=== PATIENT | female | born 1960 | race Caucasian/White ===

== ENCOUNTER 2018-03-15 07:26 | Emergency (ER) | payer OTHER ==
--- NOTE | 2018-03-15 07:50 | ED Physician Documentation ---
PD HPI NVD - Stated complaint Stated Complaint: ABN PX/DIZZY - Chief complaint Chief Complaint: Abd Pain - History obtained from History obtained from: Patient - History of Present Illness Timing - onset: Today (has few complaints, with feeling "muddle headed" and some nausea. Had run out of BP med and not gotten local PMD as yet. Had returned to drinking regularly, something which she had stopped for almost 6 months and then resumed 1-2 weeks ago. Having some nausea.) Timing - details: Gradual onset, Still present, Waxing and waning Associated symptoms: No: Fever, Abdominal pain Contributing factors: Alcohol use. No: Sick contact, Bad food, Recent antibiotics, Anticoagulated Worsened by: Moving Similar symptoms before: Has not had sx before Recently seen: Not recently seen Review of Systems Constitutional: reports: Myalgias. denies: Fever, Chills Eyes: denies: Discharge, Reviewed and negative Ears: denies: Loss of hearing, Ear pain, Tinnitus/ringing, Foreign body GI: reports: Abdominal Pain, Nausea, Vomiting. denies: Diarrhea, Hematemesis : denies: Dysuria, Frequency Musculoskeletal: denies: Neck pain, Back pain Neurologic: reports: Generalized weakness. denies: Focal weakness, Numbness PD PAST MEDICAL HISTORY - Past Medical History Past Medical History: Yes - Present Medications Home Medications: Ambulatory Orders Medication Instructions Recorded Confirmed Dicyclomine [Bentyl] 10 mg PO QID PRN #20 capsule 03/15/18 Famotidine [Pepcid] 20 mg PO ONCE #30 tablet 03/15/18 Metoprolol Tartrate 25 mg PO DAILY #30 tablet 03/15/18 Naproxen 375 mg PO BID #20 tablet 03/15/18 Nitrofurantoin [Macrobid] 100 mg PO BID #12 capsule 03/15/18 Ondansetron HCl [Zofran] 4 mg PO Q6H PRN #20 tablet 03/15/18 amLODIPine [Norvasc] 5 mg 03/15/18 chlordiazePOXIDE [Librium] 25 mg PO TID PRN #20 capsule 03/15/18 - Allergies Allergies/Adverse Reactions: Allergies Allergy/AdvReac Type Severity Reaction Status Date / Time doxycycline Allergy Mild Rash Verified 03/15/18 07:46 Sulfa (Sulfonamide Allergy Mild Rash Verified 07/15/18 07:46 Antibiotics) lisinopril AdvReac Severe Edema Verified 03/15/18 08:59 PD ED PE NORMAL - Vitals Vital signs reviewed: Yes - General General: Alert and oriented X 3, Well developed/nourished - HEENT HEENT: Atraumatic, PERRL (nonicteric), EOMI, Pharynx benign - Neck Neck: Supple, no meningeal sign, No bony TTP, No adenopathy - Cardiac Cardiac: RRR, No gallop - Respiratory Respiratory: Clear bilaterally - Abdomen Abdomen: Normal bowel sounds, Soft, Non distended, No organomegaly, Other ( concern for vomiting) Results - Vitals Vitals: Vital Signs - 24 hr 03/15/18 03/15/18 03/15/18 07:39 09:15 09:37 Temperature 37.3 C Heart Rate 84 80 82 Respiratory 16 18 18 Rate Blood Pressure 154/104 H 143/83 H O2 Saturation 94 95 03/15/18 03/15/18 11:01 11:40 Temperature 37.3 C 36.5 C Heart Rate 85 92 Respiratory 16 18 Rate Blood Pressure 138/83 H 149/100 H O2 Saturation 94 94 Oxygen O2 Source Room air - Labs Labs: Laboratory Tests 03/15/18 03/15/18 03/15/18 08:20 08:56 08:56 WBC 2.2 L RBC 3.51 L Hgb 12.4 Hct 36.6 L MCV 104.2 H MCH 35.2 H MCHC 33.8 RDW 16.2 H Plt Count 118 L MPV 6.7 L Neut # (Auto) 1.4 L Lymph # (Auto) 0.4 L [place] # (Auto) 0.3 Eos # (Auto) 0.1 Baso # (Auto) 0.0 Absolute Nucleated RBC 0.00 Nucleated RBC % 0.1 ESR Sodium 139 Potassium 4.3 Chloride 100 L Carbon Dioxide 25 Anion Gap 14.0 H BUN 10 Creatinine 0.6 Estimated GFR (MDRD) 102 Glucose 83 Calcium 8.8 Magnesium 2.1 Total Bilirubin 0.7 AST 233 H ALT 134 H Alkaline Phosphatase 95 Total Protein 7.4 Albumin 3.7 Globulin 3.7 Albumin/Globulin Ratio 1.0 Lipase 38 Urine Color YELLOW Urine Clarity CLEAR Urine pH 6.5 Ur Specific [place] 1.010 Urine Protein NEGATIVE Urine Glucose (UA) NEGATIVE Urine Ketones NEGATIVE Urine Occult Blood TRACE-LYSE Urine Nitrite NEGATIVE Urine Bilirubin NEGATIVE Urine Urobilinogen 0.2 (NORMAL) Ur Leukocyte Esterase SMALL H Urine RBC 0-5 Urine WBC >25 H Urine WBC Clumps PRESENT Ur Squamous Epith Cells MANY Squamous H Urine Bacteria Rare Ur Microscopic Review INDICATED Urine Culture Comments NOT INDICATED Ethyl Alcohol 154.2 03/15/18 08:56 WBC RBC Hgb Hct MCV MCH MCHC RDW Plt Count MPV Neut # (Auto) Lymph # (Auto) [place] # (Auto) Eos # (Auto) Baso # (Auto) Absolute Nucleated RBC Nucleated RBC % ESR 21 Sodium Potassium Chloride Carbon Dioxide Anion Gap BUN Creatinine Estimated GFR (MDRD) Glucose Calcium Magnesium Total Bilirubin AST ALT Alkaline Phosphatase Total Protein Albumin Globulin Albumin/Globulin Ratio Lipase Urine Color Urine Clarity Urine pH Ur Specific [place] Urine Protein Urine Glucose (UA) Urine Ketones Urine Occult Blood Urine Nitrite Urine Bilirubin Urine Urobilinogen Ur Leukocyte Esterase Urine RBC Urine WBC Urine WBC Clumps Ur Squamous Epith Cells Urine Bacteria Ur Microscopic Review Urine Culture Comments Ethyl Alcohol PD MEDICAL DECISION MAKING - ED course Complexity details: reviewed results (mildly thickened GB wall at 4 mm. No stones. No free fluid. CBD normal. LFTs some elevated. white count and plateles likely showing some effect of chronic liver disease), re-evaluated patient ( improved with meds/fluids. ), considered differential, d/w patient - Sepsis Event Vital Signs: Vital Signs - 24 hr 03/15/18 03/15/18 03/15/18 07:39 09:15 09:37 Temperature 37.3 C Heart Rate 84 80 82 Respiratory 16 18 18 Rate Blood Pressure 154/104 H 143/83 H O2 Saturation 94 95 03/15/18 03/15/18 11:01 11:40 Temperature 37.3 C 36.5 C Heart Rate 85 92 Respiratory 16 18 Rate Blood Pressure 138/83 H 149/100 H O2 Saturation 94 94 Oxygen O2 Source Room air Departure - Departure Disposition: 01 Home, Self Care Clinical Impression: Upper abdominal pain, Acalculous cholecystitis Alcohol withdrawal Qualifiers: Complication of substance-induced condition: uncomplicated Qualified Code(s): F10.230 - Alcohol dependence with withdrawal, uncomplicated Gastritis Qualifiers: Gastritis type: unspecified gastritis Chronicity: acute Gastritis bleeding: without bleeding Qualified Code(s): K29.00 - Acute gastritis without bleeding UTI (urinary tract infection) Qualifiers: Urinary tract infection type: acute cystitis Hematuria presence: without hematuria Qualified Code(s): N30.00 - Acute cystitis without hematuria Condition: Stable Record reviewed to determine appropriate education?: Yes Instructions: ED Gastritis, ED Epigastric Pain UKO Prescriptions: chlordiazePOXIDE [Librium] 25 mg PO TID PRN #20 capsule PRN Reason: Agitation Dicyclomine [Bentyl] 10 mg PO QID PRN #20 capsule PRN Reason: Spasms Famotidine [Pepcid] 20 mg PO ONCE #30 tablet Metoprolol Tartrate 25 mg PO DAILY #30 tablet Naproxen 375 mg PO BID #20 tablet Nitrofurantoin [Macrobid] 100 mg PO BID #12 capsule Ondansetron HCl [Zofran] 4 mg PO Q6H PRN #20 tablet PRN Reason: Nausea / Vomiting Comments: Your ultrasound shows some mild inflammation of the wall of the gallbladder. There are no stones seen. The location of your pain in that area suggests possibly some gallbladder inflammation. Alternatively he may have just irritation of the stomach lining called gastritis. You can use some naproxen twice daily with food to help with the gallbladder pains. Add dicyclomine if needed for spasms and pain. Add Tylenol if needed for pain. For the stomach we will treated with famotidine daily for the next 2-3 weeks. Add antacids such as much Maalox or Mylanta to it. There is a mild bladder infection by your urine test; Macrobid twice daily for 6 days for that. For your alcohol withdrawal, first to stop drinking again. Use Librium as needed for withdrawal symptoms. Ondansetron as needed for nausea. For your blood pressure, we can add metoprolol as a blood pressure medicine and see how you do with that over the next week or 2. Follow-up with your primary care later this week for recheck, call Friday for an appointment. Discharge Date/Time: 03/15/18 11:48
[2018-03-15] MEDS ORDERED: SODIUM CHLORIDE 0.9% 1,000 ML IV ONE (08:24)
[2018-03-15] MEDS ORDERED: KETOROLAC 60 MG/2 ML VIAL IVP STA (08:24)
[2018-03-15] MEDS ORDERED: LORazepam 2 MG/ML VIAL IVP STA ×2 (08:24→11:19)
[2018-03-15] MEDS ORDERED: ONDANSETRON 4 MG/2 ML VIAL IVP STA (08:24)
[2018-03-15 08:41] LABS: BILIRUBIN,URINE NEGATIVE (NEGATIVE); CLARITY,URINE CLEAR (CLEAR); GLUCOSE, URINE (UA) NEGATIVE (NEGATIVE); KETONES,URINE (UA) NEGATIVE (NEGATIVE); LEUKOCYTE ESTERASE, URINE SMALL (NEGATIVE); NITRITE,URINE NEGATIVE (NEGATIVE); OCCULT BLOOD,URINE TRACE-LYSE (NEGATIVE); PH,URINE 6.5 PH (5.0-7.5); PROTEIN,URINE NEGATIVE (NEGATIVE); UROBILINOGEN,URINE 0.2 (NORMAL) E.U./dL (NORMAL)
[2018-03-15 08:49] LABS: BACTERIA,URINE Rare /HPF (None Seen); RBC,URINE 0-5 /HPF (0-5); SQUAMOUS EPITHELIAL CELL,UR MANY Squamous (<= Few); WBC CLUMPS,URINE PRESENT
[2018-03-15] MEDS ORDERED: ALBUTEROL NEB 2.5 MG/3 ML INH STA (09:02)
[2018-03-15 09:07] LABS: BASOPHILS % (AUTO) 1.2 %; EOSINOPHILS # (AUTO) 0.1 10^3/uL (0.0-0.7); EOSINOPHILS % (AUTO) 3.2 %; HGB - HEMOGLOBIN 12.4 g/dL (12.0-16.0); LYMPHOCYTES # (AUTO) 0.4 10^3/uL (1.5-3.5); LYMPHOCYTES % (AUTO) 16.5 %; MEAN CORPUSCULAR HEMOGLOBIN 35.2 pg (27.0-31.0); MEAN CORPUSCULAR HGB CONC 33.8 g/dL (32.0-36.0); MEAN CORPUSCULAR VOLUME 104.2 fL (81.0-99.0); MEAN PLATELET VOLUME 6.7 fL (7.9-10.8); MONOCYTES # (AUTO) 0.3 10^3/uL (0.0-1.0); NEUTROPHILS # (AUTO) 1.4 10^3/uL (1.5-6.6); NEUTROPHILS % (AUTO) 64.1 %; PLT - PLATELET COUNT 118 10^3/uL (130-450); RED BLOOD COUNT 3.51 10^6/uL (4.20-5.40); RED CELL DISTRIBUTION WIDTH 16.2 % (12.0-15.0); WHITE BLOOD COUNT 2.2 x10^3/uL (4.8-10.8)
[2018-03-15 09:19] LABS: ALBUMIN 3.7 g/dL (3.2-5.5); BILIRUBIN,TOTAL 0.7 mg/dL (0.2-1.0); CALCIUM 8.8 mg/dL (8.5-10.3); CREATININE 0.6 mg/dL (0.4-1.0); MAGNESIUM 2.1 mg/dL (1.7-2.8); TOTAL PROTEIN 7.4 g/dL (6.7-8.2)
--- NOTE | 2018-03-15 11:01 | Ultrasound Report ---
Procedure Date: 03/15/2018 Accession Number: [id number] / [id number] Procedure: US - Abdomen Limited CPT Code: FULL RESULT: EXAM: ABDOMEN ULTRASOUND LIMITED, RUQ EXAM DATE: 03/15/2018 10:33 AM. CLINICAL HISTORY: Right upper quadrant pain COMPARISON: None. TECHNIQUE: Real-time scanning was performed with static images obtained. FINDINGS: Liver: The liver has increased echotexture consistent with fatty infiltration. It is mildly increased in size with an oblique length of 20 cm. Main portal vein flow: Hepatopetal. Gallbladder: The wall thickness is 4.3 mm. The patient reports some tenderness over the gallbladder. No stones. Biliary System: CBD measures 3 mm. No intrahepatic or extrahepatic ductal dilatation. Other: The right kidney is 11.1 cm in length. No stones or hydronephrosis. IMPRESSION: 1. Fatty and mildly enlarged liver. 2. Mildly thickened gallbladder wall with some tenderness raises concern for cholecystitis. RADIA
[2018-03-15] MEDS ORDERED: DICYCLOMINE 10 MG CAPSULE PO STA (11:19)
[2018-03-15] MEDS ORDERED: LIDOCAINE VISCOUS 2% 15 ML UDC MM STA (11:19)
[2018-03-15] MEDS ORDERED: MAG HYDROX/AL HYDROX/SIMETH 30 ML UDC PO STA (11:19)
[2018-03-15 11:40] VITALS: BP 149/100
== END 2018-03-15 11:48 | disposition home or self-care (01) ==
LOC: ED 07:26
DX: R10.10 Upper abdominal pain, unspecified (principal); K82.8 Other specified diseases of gallbladder; F10.230 Alcohol dependence with withdrawal, uncomplicated; K29.00 Acute gastritis without bleeding; N30.00 Acute cystitis without hematuria; T46.5X6A Underdosing of other antihypertensive drugs, initial encounter; Z91.128 Patient's intentional underdosing of medication regimen for other reason; R74.8 Abnormal levels of other serum enzymes; I10 Essential (primary) hypertension
CPT/HCPCS: 36415; 76705; 80053; 80320; 81001; 83690; 83735; 85025; 85651; 94640; 94664; 96361; 96374; 96375; 96376; 99283; A9270; J2060; 81003; 87086

== ENCOUNTER 2018-04-01 12:05 | Emergency (ER) | payer OTHER ==
--- NOTE | 2018-04-01 12:33 | ED Physician Documentation ---
PD HPI LOWER EXT INJURY - Stated complaint Stated Complaint: LEFT LEG PX/SWELLING - Chief complaint Chief Complaint: Ext Problem - History obtained from History obtained from: Patient - History of Present Illness PD HPI LOW EXT INJURY LOCATION: Other (57-year-old woman with history of lupus. She was seen 6 days ago for left lower extremity swelling which got better when it was raised. She had an ultrasound showing a Elizabeth's cyst and no DVT. Now the swelling is worse and also a little bit in the right lower extremity. She notes now that it does not go away when she has it elevated. She denies chest pain or trouble breathing.) Review of Systems Constitutional: denies: Fever, Chills Cardiac: denies: Chest pain / pressure, Palpitations Respiratory: denies: Dyspnea, Cough PD PAST MEDICAL HISTORY - Past Medical History Cardiovascular: Hypertension, High cholesterol Respiratory: Other Endocrine/Autoimmune: None GI: Other : Other Psych: Anxiety - Past Surgical History Past Surgical History: Yes General: Appendectomy HEENT: Tonsil/Adenoidectomy - Present Medications Home Medications: Ambulatory Orders Medication Instructions Recorded Confirmed Dicyclomine [Bentyl] 10 mg PO QID PRN #20 capsule 03/15/18 Famotidine [Pepcid] 20 mg PO ONCE #30 tablet 03/15/18 Metoprolol Tartrate 25 mg PO DAILY #30 tablet 03/15/18 Naproxen 375 mg PO BID #20 tablet 03/15/18 Nitrofurantoin [Macrobid] 100 mg PO BID #12 capsule 03/15/18 Ondansetron HCl [Zofran] 4 mg PO Q6H PRN #20 tablet 03/15/18 amLODIPine [Norvasc] 5 mg 03/15/18 chlordiazePOXIDE [Librium] 25 mg PO TID PRN #20 capsule 03/15/18 - Allergies Allergies/Adverse Reactions: Allergies Allergy/AdvReac Type Severity Reaction Status Date / Time doxycycline Allergy Mild Rash Verified 03/15/18 07:46 Sulfa (Sulfonamide Allergy Mild Rash Verified 03/15/18 07:46 Antibiotics) lisinopril AdvReac Severe Edema Verified 03/15/18 08:59 - Social History Does the pt smoke?: No Smoking Status: Never smoker Does the pt drink ETOH?: Yes PD ED PE NORMAL - Vitals Vital signs reviewed: Yes - General General: Alert and oriented X 3, No acute distress - Extremities Extremities: Other (Modest edema of the left lower extremity with negative Homans sign, no discoloration, normal pedal pulses.) - Neuro Neuro: Alert and oriented X 3 - Psych Psych: Normal mood, Normal affect Results - Vitals Vitals: Vital Signs - 24 hr 04/01/18 04/01/18 12:09 13:41 Temperature 36.4 C L 36.3 C L Heart Rate 77 65 Respiratory 16 18 Rate Blood Pressure 136/100 H 136/87 H O2 Saturation 94 98 Oxygen O2 Source Room air - Rads (name of study) BLE Duplex Radiology: Prelim report reviewed (no DVT, poss L Elizabeth's cyst) PD MEDICAL DECISION MAKING - Sepsis Event Vital Signs: Vital Signs - 24 hr 04/01/18 04/01/18 12:09 13:41 Temperature 36.4 C L 36.3 C L Heart Rate 77 65 Respiratory 16 18 Rate Blood Pressure 136/100 H 136/87 H O2 Saturation 94 98 Oxygen O2 Source Room air Departure - Departure Disposition: 01 Home, Self Care Clinical Impression: Pedal edema Bakers cyst Qualifiers: Laterality: left Qualified Code(s): M71.22 - Synovial cyst of popliteal space [ Elizabeth], left knee Condition: Good Record reviewed to determine appropriate education?: Yes Instructions: ED Cyst Elizabeth Comments: Call your doctor to arrange a follow-up appointment, make the next available appointment. In the interim, return anytime if worse or if new symptoms develop. Your blood pressure was elevated today on check into the emergency department. This does not mean that you have hypertension, it is a common phenomenon to come to the emergency department and have elevated blood pressure. I recommend that you see your primary care physician within the week to have it rechecked when you are feeling better. Discharge Date/Time: 04/01/18 13:50
--- NOTE | 2018-04-01 13:39 | Ultrasound Report ---
Procedure Date: 04/01/2018 Accession Number: [id number] / [id number] Procedure: US - Duplex Ext Veins Bilateral CPT Code: FULL RESULT: EXAM: Duplex Ext Veins Bilateral DATE: 04/01/2018 1:22 PM CLINICAL HISTORY: BLE swelling, known LLE bakers COMPARISON: None. TECHNIQUE: Real-time sonographic vascular imaging was performed by the school bus technician through the lower extremities utilizing both color-flow and Doppler spectral analysis. Multiple applications sales representative static images were saved for review. FINDINGS: Right: Common Femoral Vein (CFV): Normal. [Profunda Femoral Vein (PFV): Normal. Superficial Femoral Vein (SFV) Prox: Normal. Superficial Femoral Vein (SFV) Mid: Normal. Superficial Femoral Vein (SFV) Dist: Normal. Limited calf vein visualization. Left: Common Femoral Vein (CFV): Normal. [Profunda Femoral Vein (PFV): Normal. Superficial Femoral Vein (SFV) Prox: Normal. Superficial Femoral Vein (SFV) Mid: Normal. Superficial Femoral Vein: (SFV) Dist: Normal. Limited calf vein visualization. Other: A left popliteal fossa fluid collection measuring 4.7 x 9.6 x 2.4 cm is identified. This may represent a Elizabeth's cyst, though the diagnosis is not definitively established as the collection was not demonstrated to arise between the medial head of the gastrocnemius and semimembranosus tendon. IMPRESSION: No DVT is identified. Limited visualization of the calf veins. Suspect left popliteal fossa cyst, possibly Elizabeth's cyst as described. RADIA
[2018-04-01 13:42] VITALS: BP 136/87
== END 2018-04-01 13:50 | disposition home or self-care (01) ==
LOC: ED 12:05
DX: R60.0 Localized edema (principal); M71.22 Synovial cyst of popliteal space [Baker], left knee; I10 Essential (primary) hypertension
CPT/HCPCS: 93970; 99283

== ENCOUNTER 2018-09-05 09:12 | Emergency (ER) | payer OTHER ==
[2018-09-05] MEDS ORDERED: SODIUM CHLORIDE 0.9% 1,000 ML IV STA (09:44)
--- NOTE | 2018-09-05 09:49 | ED Physician Documentation ---
History of Present Illness - Stated complaint Stated Complaint: L EYE PX/BLURRY VISION - Chief complaint Chief Complaint: General - History obtained from History obtained from: Patient - History of Present Illness Timing: How many weeks ago (2.5) Pain level max: 4 Pain level now: 4 Improved by: nothing Worsened by: nothing - Additonal information Additional information: 57-year-old female who presents to the emergency department with 2 complaints. The first is continued discomfort to the left eye since her pterygium surgery in [facility] around August 17. No real changes in her vision or discomfort, it is just not getting better. Has not seen her doctor. Called the [facility] advice line who directed her to the nearest emergency department. She is currently on prednisolone and Polytrim ophthalmic for this. She is placing the drops together. She also feels like her kidneys may be shutting down as she is not urinating as much as normal. Has had a partial nephrectomy in the past. She is not having any abdominal pain, back pain, fevers, vomiting, diarrhea. Review of Systems Ten Systems: 10 systems reviewed and negative Constitutional: denies: Fever, Chills Eyes: denies: Photophobia, Discharge Ears: denies: Ear pain Nose: denies: Rhinorrhea / runny nose, Congestion Cardiac: denies: Chest pain / pressure Respiratory: denies: Cough, Wheezing GI: denies: Vomiting, Diarrhea Skin: denies: Rash Musculoskeletal: denies: Neck pain, Back pain Neurologic: denies: Focal weakness, Numbness, Headache PD PAST MEDICAL HISTORY - Past Medical History Past Medical History: Yes Cardiovascular: Hypertension, High cholesterol Respiratory: Other Endocrine/Autoimmune: None GI: Other : Other Psych: Anxiety - Past Surgical History Past Surgical History: Yes General: Appendectomy HEENT: Tonsil/Adenoidectomy - Present Medications Home Medications: Ambulatory Orders Medication Instructions Recorded Confirmed Dicyclomine [Bentyl] 10 mg PO QID PRN #20 capsule 03/15/18 Famotidine [Pepcid] 20 mg PO ONCE #30 tablet 03/15/18 Metoprolol Tartrate 25 mg PO DAILY #30 tablet 03/15/18 Naproxen 375 mg PO BID #20 tablet 03/15/18 Nitrofurantoin [Macrobid] 100 mg PO BID #12 capsule 03/15/18 Ondansetron HCl [Zofran] 4 mg PO Q6H PRN #20 tablet 03/15/18 amLODIPine [Norvasc] 5 mg 03/15/18 chlordiazePOXIDE [Librium] 25 mg PO TID PRN #20 capsule 03/15/18 chlordiazePOXIDE [Librium] 25 - 50 mg PO Q6H PRN #30 capsule 09/05/18 - Allergies Allergies/Adverse Reactions: Allergies Allergy/AdvReac Type Severity Reaction Status Date / Time doxycycline Allergy Mild Rash Verified 09/05/18 09:25 Sulfa (Sulfonamide Allergy Mild Rash Verified 09/05/18 09:25 Antibiotics) lisinopril AdvReac Severe Edema Verified 09/05/18 09:25 - Social History Does the pt smoke?: No Smoking Status: Never smoker Does the pt drink ETOH?: Yes ETOH Use: Wine - POLST Patient has POLST: No PD ED PE NORMAL - Vitals Vital signs reviewed: Yes - General General: Alert and oriented X 3, No acute distress - HEENT HEENT: PERRL, EOMI, Moist mucous membranes, Other (Bilateral eyes - Normal- appearing conjunctiva. No drainage. No injection. No clouding off the cornea.) - Neck Neck: Supple, no meningeal sign - Cardiac Cardiac: RRR - Respiratory Respiratory: No respiratory distress, Clear bilaterally - Abdomen Abdomen: Soft, Non tender, Non distended - Derm Derm: Warm and dry, No rash - Neuro Neuro: Alert and oriented X 3 - Psych Psych: Normal mood, Normal affect Results - Vitals Vitals: Vital Signs - 24 hr 09/05/18 09/05/18 09:20 12:12 Temperature 36.3 C L 36.7 C Heart Rate 94 97 Respiratory 15 16 Rate Blood Pressure 171/101 H 154/91 H O2 Saturation 97 93 Oxygen O2 Source Room air - Labs Labs: Laboratory Tests 09/05/18 09/05/18 09/05/18 10:20 10:20 10:43 WBC 2.2 L RBC 3.35 L Hgb 12.4 Hct 35.8 L MCV 107.1 H MCH 37.0 H MCHC 34.5 RDW 14.7 Plt Count 100 L MPV 6.9 L Neut # (Auto) 1.5 Lymph # (Auto) 0.3 L [place] # (Auto) 0.3 Eos # (Auto) 0.1 Baso # (Auto) 0.0 Absolute Nucleated RBC 0.00 Band Neuts % (Manual) Not Reportable Abnorm Lymph % (Manual) Not Reportable Nucleated RBC % 0.1 Neutrophils # (Manual) Not Reportable Lymphocytes # (Manual) Not Reportable Monocytes # (Manual) Not Reportable Eosinophils # (Manual) Not Reportable Basophils # (Manual) Not Reportable Differential Comment MANUAL=AUTO DIFF Sodium 132 L Potassium 4.2 Chloride 93 L Carbon Dioxide 25 Anion Gap 14.0 H BUN 8 Creatinine 0.7 Estimated GFR (MDRD) 86 L Glucose 82 Calcium 8.7 Total Bilirubin 0.9 AST 217 H ALT 140 H Alkaline Phosphatase 58 Total Protein 7.4 Albumin 4.2 Globulin 3.2 Albumin/Globulin Ratio 1.3 Lipase 32 Urine Color YELLOW Urine Clarity HAZY Urine pH 6.0 Ur Specific [place] <=1.005 Urine Protein NEGATIVE Urine Glucose (UA) NEGATIVE Urine Ketones NEGATIVE Urine Occult Blood NEGATIVE Urine Nitrite NEGATIVE Urine Bilirubin NEGATIVE Urine Urobilinogen 0.2 (NORMAL) Ur Leukocyte Esterase NEGATIVE Urine RBC None Seen Urine WBC 0-3 Ur Epithelial Cells FEW Transitional Ur Squamous Epith Cells MOD Squamous H Urine Bacteria Few Ur Microscopic Review INDICATED Urine Culture Comments NOT INDICATED PD MEDICAL DECISION MAKING - ED course Complexity details: reviewed results, re-evaluated patient, considered differential, d/w patient, d/w production support consultant ED course: 57-year-old female with left eye discomfort and blurred vision since her operation on August 17 in [place]. I discussed the case with ophthalmology on-call for [facility] Dr. Tenorio, her surgery was actually on the and her follow-up visit was the . She has another follow-up this month. We will space out her eyedrops. Her intraocular pressure on the left is 19-20. She did not have preoperative intraocular pressures measured. Her pupils are equal round reactive to light. No signs of infection. Her creatinine is normal. The patient is a alcoholic and drinks at least 2 bottles of wine per day. She is scared about going into withdrawals but would like to quit drinking. Therefore social work was consulted and resources given. Will prescribe Librium for home. Patient was counseled regarding her laboratory abnormalities including thrombocytopenia and leukopenia. Patient counseled regarding signs and symptoms for which I believe and urgent re-evaluation would be necessary. Patient with good understanding of and agreement to plan and is comfortable going home at this time This document was made in part using voice recognition software. While efforts are made to proofread this document, sound alike and grammatical errors may occur. Departure - Departure Disposition: 01 Home, Self Care Clinical Impression: Postoperative pain, Alcoholism Condition: Good Instructions: ED Wound Check Post Op No Infec, ED Alcohol Abuse Follow-Up: your,doctor within 1 week [Other] Prescriptions: chlordiazePOXIDE [Librium] 25 - 50 mg PO Q6H PRN #30 capsule PRN Reason: Alcohol Withdrawal Comments: you should try spacing your eyedrops out at least 10-15 minutes apart. Return if you worsen. You should contact your cartridge assembling machine adjuster early next week for further instructions. You may need to fly back to [place] to be reevaluated. you can also use artificial tears at home every hour to help with discomfort. Discharge Date/Time: 09/05/18 12:31
[2018-09-05 10:26] LABS: BASOPHILS % (AUTO) 1.1 %; EOSINOPHILS # (AUTO) 0.1 10^3/uL (0.0-0.7); EOSINOPHILS % (AUTO) 2.7 %; HGB - HEMOGLOBIN 12.4 g/dL (12.0-16.0); LYMPHOCYTES # (AUTO) 0.3 10^3/uL (1.5-3.5); MEAN CORPUSCULAR HGB CONC 34.5 g/dL (32.0-36.0); MEAN CORPUSCULAR VOLUME 107.1 fL (81.0-99.0); MEAN PLATELET VOLUME 6.9 fL (7.9-10.8); MONOCYTES # (AUTO) 0.3 10^3/uL (0.0-1.0); MONOCYTES % (AUTO) 14.3 %; NEUTROPHILS # (AUTO) 1.5 10^3/uL (1.5-6.6); NEUTROPHILS % (AUTO) 68.9 %; PLT - PLATELET COUNT 100 10^3/uL (130-450); RED BLOOD COUNT 3.35 10^6/uL (4.20-5.40); RED CELL DISTRIBUTION WIDTH 14.7 % (12.0-15.0); WHITE BLOOD COUNT 2.2 x10^3/uL (4.8-10.8)
[2018-09-05 10:37] LABS: ALBUMIN 4.2 g/dL (3.2-5.5); ALBUMIN/GLOBULIN RATIO 1.3 (1.0-2.2); BILIRUBIN,TOTAL 0.9 mg/dL (0.2-1.0); CALCIUM 8.7 mg/dL (8.5-10.3); CREATININE 0.7 mg/dL (0.4-1.0); TOTAL PROTEIN 7.4 g/dL (6.7-8.2)
[2018-09-05 10:49] LABS: DIFFERENTIAL COMMENT MANUAL=AUTO DIFF
[2018-09-05 10:52] LABS: BILIRUBIN,URINE NEGATIVE (NEGATIVE); GLUCOSE, URINE (UA) NEGATIVE (NEGATIVE); KETONES,URINE (UA) NEGATIVE (NEGATIVE); LEUKOCYTE ESTERASE, URINE NEGATIVE (NEGATIVE); NITRITE,URINE NEGATIVE (NEGATIVE); OCCULT BLOOD,URINE NEGATIVE (NEGATIVE); PROTEIN,URINE NEGATIVE (NEGATIVE); UROBILINOGEN,URINE 0.2 (NORMAL) E.U./dL (NORMAL)
[2018-09-05 10:57] LABS: CLARITY,URINE HAZY (CLEAR)
[2018-09-05 11:07] LABS: RBC,URINE None Seen /HPF (0-5); SQUAMOUS EPITHELIAL CELL,UR MOD Squamous (<= Few)
[2018-09-05 11:08] LABS: BACTERIA,URINE Few /HPF (None Seen); EPITHELIAL CELLS,UR FEW Transitional /HPF (<= Few)
[2018-09-05 12:13] VITALS: BP 154/91
== END 2018-09-05 12:31 | disposition home or self-care (01) ==
LOC: ED 09:12
DX: G89.18 Other acute postprocedural pain (principal); H57.12 Ocular pain, left eye; F10.20 Alcohol dependence, uncomplicated; I10 Essential (primary) hypertension; Z90.5 Acquired absence of kidney
CPT/HCPCS: 36415; 80053; 81001; 81003; 83690; 85025; 87086; 99283

== ENCOUNTER 2020-02-29 11:42 | Outpatient (CLI) | payer BC ==
--- NOTE | 2020-02-29 12:46 | XRAY Report ---
PROCEDURE: Knee 3 View BILAT INDICATIONS: Left knee pain TECHNIQUE: 3 views of the bilateral knees COMPARISON: None. FINDINGS: Bones: Moderate osteophytic changes bilaterally characterized by joint space narrowing with marginal osteophytosis and subchondral sclerosis. Findings are worst in the right patellofemoral compartment w here there is essentially complete loss of joint space as well as lateral subluxation and tilt of the patella as a function of the degenerative change. Findings are also pronounced in the medial femorot ibial compartments bilaterally, left greater than right. Soft tissues: No joint effusion. No suspicious soft tissue calcifications. IMPRESSION: overall moderate bilateral tricompartmental osteoarthritis. Reviewed by: Gibran Schmitz MD on 02/29/2020 12:44 PM PDT Approved by: Gibran Schmitz MD on 02/29/2020 12:44 PM PDT Station ID: [id number]
== END 2020-02-29 11:43 | disposition home or self-care (01) ==
LOC: DI 11:42
PROVIDERS: ATTEND Physician Assistant
DX: M17.0 Bilateral primary osteoarthritis of knee (principal)

== ENCOUNTER 2020-03-21 09:05 | Outpatient (CLI) | payer BC ==
--- NOTE | 2020-03-21 09:47 | SLEEP CARE CONSULTATION ---
Information from patient questionnaire entered by Mildred Serrato. I have reviewed and concur with the information entered by Mildred Serrato. This document represents the service I personally performed and the decisions made by me, Carmina Oliveira ARNP. History of Present Illness Service Date and Time: 03/21/2020904 Reason for Visit: New patient Chief Complaint: reports: Unrefreshed sleep, Snoring, Excessive daytime sleepiness, Observed pauses in breathing, Fatigue, Frequent awakenings at night. denies: Insomnia Usual bedtime: 10 pm - 12 am Time it takes to fall asleep: 10-15 mins Snores at night: Yes Observed to quit breathing while asleep: Yes Sleeps alone due to snoring: No Number of times waking at night: 1-2 Reasons for waking at night: reports: Snoring, Gasping for air, Pain, Bathroom. denies: Choking, Other Toss, Turn, or Twitch while sleeping: No Recalls having dreams: Yes Usually gets out of bed at: 6-8 am Feels refreshed in the morning: No Morning headache: No Sleepy or fatigued during the day: Yes Ever fallen asleep while driving: No Takes day naps: No Dreams during day naps: No Prior sleep studies: No Additional HPI information: has seen her gasp for breath, stop breathing and snoring. She has remembered dreaming of choking/can't catch breath and then wakes up. She has had less incidence since she stopped drinking as heavily, approximately 1 year to 14 months ago. - Parasomnia Symptoms Ever been unable to move upon waking from sleep: Yes Walks in sleep: No Talks in sleep: No Ever acted out dreams in sleep: No Ever felt weak in the knees when startled or emotional: No Bothered by creepy, crawly, restless sensations in legs: No Problems with memory or concentration: Yes Subjective Initial [place] Sleepiness Scale score: 8 Past Medical History Past Medical History: reports: Hypertension (not on any medication, mild), Arthritis, Arrythmia (occasional hard palpitation; worked up by PCP/cardiology and found little regurgitation), Anxiety, Asthma, Other (LUPUS). denies: Claustrophobia, Congestive Heart Failure, Diabetes, Coronary Heart Disease, Insulin resistance, Hypothyroidism, Depression, Mood disorder, GERD Social History The patient's occupation is Retired. Patient is and lives in [place]. Have you smoked in the past 12 months: No Cigarettes per day (20/pack): 20 Years of smokin Quit date: 1984 Smoking Pack Years: 10.0 Alcohol use: No Caffeine use: Yes Caffeine amount and frequency: 1/2 pot coffee daily Family History Family history of sleep disordered breathing: Yes (daughter treated CARLOTTA ) Allergies and Home Medications Drug allergies reviewed: Yes (doxycycline, sulfa, lisinopril) Home medication list reviewed: Yes (no changes; zoloft for anxiety) Review of Systems Weight gain over past 5 years: 40 Cardiovascular: reports: high blood pressure, palpitations, irregular heart rate or pulse. denies: chest pain, leg or foot swelling, have to sleep sitting up Respiratory: reports: shortness of breath, wheeze. denies: chronic cough Gastrointestinal: denies: heartburn, difficulty swallowing Urinary: reports: incontinence Neurological: reports: head trauma (concussion). denies: headaches, seizure, disorientation, speech dysfunction, gait or balance problems, fainting or unconsciousness Psychiatric: reports: anxiety. denies: Attention Deficit Hyperactivity, depression, mood disorder, claustrophobia Ear/Nose/Throat: reports: dry mouth/throat, hoarseness, tonsillectomy. denies: wisdom teeth removed (going to be removed) Endocrine: denies: thyroid disease, history of goiter, too hot or cold, excessive thirst, increased appetite, unexplained weakness Musculoskeletal: reports: joint pain (arthritis/Lupus) Immunologic: reports: rash. denies: allergies to food or environment Physical Exam Blood Pressure: 124/90 Cuff size: long Heart Rate: 61 O2 Saturation: 93 Height: 5 ft 6 in Weight: 202 lb (15 pound weight loss over last year with increased activity and quit drinking.) Body Mass Index: 32.5 BMI Classification: Obese Neck circumference: 13.75 Nostrils: patent to airflow Turbinates: swollen Septum: midline Mouth and throat: normal Soft palate: normal Hard palate: normal Uvula: normal Uvula visualization: 50% Mallampati Class II Tongue: normal in size Tonsils: absent bilaterally Chin and jaw: normal size and position Neck: normal w/o lymphadenopathy or thyromegaly Heart: regular rate and rhythm Lungs: clear bilaterally Impression and Plan 1. Suspected Obstructive Sleep Apnea-Hypopnea Syndrome, as suggested by a history of loud and irregular snoring, observed cessation of breath while asleep, gasping or choking in sleep, frequent awakening during the night, unrefreshed sleep, and excessive daytime sleepiness. Narrow oropharynx and obesity are common predisposing factors for obstructive sleep apnea-hypopnea syndrome. 2. Obesity. Patient has lost weight over the last year since she stopped drinking and increased her activity level. Currently patients BMI is 37.9. Obesity increases the risk of apnea, CPAP pressure requirements and overall health risks especially cardiovascular and diabetes. Thus patient is advised to continue to lose weight. The BMI chart was reviewed. I recommend proceeding to polysomnography to confirm the diagnosis and to assess severity. If the patient has significant sleep disordered breathing, a manual CPAP titration study will also be performed to find the optimal treatment pressure. I informed the patient of what the sleep studies involve and after some discussion, obtained agreement to proceed. The pathophysiology of obstructive sleep apnea-hypopnea syndrome was discussed with the patient and health risks of cardiovascular and cerebrovascular disease if not treated. Risks of drowsy driving discussed in detail and patient advised to avoid long distance driving and to slab puller at the first sign of drowsiness. Patient agreed to plan. * Schedule polysomnography +- manual CPAP titration study and return in 1-2 weeks after the study to discuss result and initiate therapy. * Avoid long distance driving or driving when feeling sleepy. * Avoid alcohol, sedative and muscle relaxant around bedtime. * Continue to lose weight. * Review instructions provided by trained office staff on how to prepare for the sleep study. * Return for follow-up after sleep study completed. Visit Type: In Office Time Spent with Patient (minutes): 25 Provider Statement: I spent 100% of the Face to Face Visit with the patient with greater than 50% spent counseling the patient and coordination of care.
[2020-03-21 09:48] VITALS: BP 124/90
== END 2020-03-21 09:06 | disposition home or self-care (01) ==
LOC: SC 09:05
PROVIDERS: ATTEND Nurse Practitioner Family
DX: G47.10 Hypersomnia, unspecified (principal); R06.81 Apnea, not elsewhere classified; G47.8 Other sleep disorders; R06.83 Snoring; E66.9 Obesity, unspecified; Z68.32 Body mass index [BMI] 32.0-32.9, adult
CPT/HCPCS: 99204; 99212

== ENCOUNTER 2020-03-27 08:31 | Outpatient (CLI) | payer BC | END 2020-03-27 08:32 | disposition home or self-care (01) | LOC: LAB 08:31 | PROVIDERS: ATTEND Internal Medicine | DX: Z11.59 Encounter for screening for other viral diseases (principal) ==

== ENCOUNTER 2020-05-05 20:50 | Outpatient (CLI) | payer BC | END 2020-05-05 20:51 | disposition home or self-care (01) | LOC: SC 20:50 | PROVIDERS: ATTEND Internal Medicine Pulmonary Disease | DX: G47.33 Obstructive sleep apnea (adult) (pediatric) (principal); E66.9 Obesity, unspecified; Z68.32 Body mass index [BMI] 32.0-32.9, adult | CPT/HCPCS: 95810 ==

== ENCOUNTER 2020-05-17 12:50 | Outpatient (CLI) | payer BC ==
--- NOTE | 2020-05-17 13:22 | SLEEP CARE CONSULTATION ---
Information from patient questionnaire entered by Mildred Serrato. I have reviewed and concur with the information entered by Mildred Serrato. This document represents the service I personally performed and the decisions made by , Carmina Oliveira ARNP. History of Present Illness Service Date and Time: 05/17/2020 1250 Initial [place] Sleepiness Scale score: 8 (in 2020) Current [place] Sleepiness Scale score: 4 Additional HPI information: DARIANA STINSON returns for follow up and results of the recently performed polysomnography. Her study was positive for moderate obstructive sleep apnea with an average AHI of 22.2 and a bessy oxygen saturation of 83%. Her supine AHI was 30.0 and her non-supine AHI was 10.37. I explained the pathophysiology behind obstructive sleep apnea. We then spent quite a bit of time discussing different treatment options. For mild obstructive sleep apnea, surgery and oral appliance are alternatives to nasal CPAP therapy but in moderate or severe cases, nasal CPAP is the most effective and reliable treatment. Because apnea is worse in the supine position methods discussed such as positioning with pillows to prevent supine sleep. I reviewed the impact of weight changes on sleep apnea and strongly recommended losing weight. After some discussion, the patient opted to go with the nasal CPAP therapy. Nasal autoCPAP set at 4-15 cmH20 will be ordered with rationale explained. A manual titration study will be ordered if unable to find optimal pressure with office adjustments. I explained how CPAP machine works with sample devices Respironics Dreamstation and ResBlink (air taxi) [id number] and what to expect when using the machine. Using CPAP every night in order to get used to it was emphasized. Patient advised to put CPAP mask on before getting into bed so as not to fall asleep without CPAP. To assist acclimation to CPAP use, it could also be used for a short time during day while reading or watching TV. The patient was instructed to call the CPAP supplier to discuss any mechanical problem that may occur. If the mask given is uncomfortable or is difficult to keep on through the night even with adjustment, contact the CPAP supplier as many will replace with another mask style if not ified before 30 days. If snoring or perceives is not getting enough air or too much air from the machine, notify this office. [facility] patient education PAP tips reviewed and given to patient. Patient does not drink alcohol. Patient was cautioned about risks of drowsy driving until sleepiness symptoms resolve. Patient denies drowsy driving. Sleep Study - Results Prior sleep studies: No Polysomnography/Home Sleep Study results: IMPRESSION: The quality of the study is good. The patient had normal sleep efficiency. The sleep architecture was abnormal for sleep fragmentation and reduced amount of time spent in REM sleep. Respiratory monitoring showed moderate obstructive sleep apnea-hypopnea (AHI = 22.2) associated with frequent arousals, oxyhemoglobin desaturation and mild hypoxia (bessy oxygen saturation of 83%). The respiratory events occurred mainly during supine sleep (supine AHI = 30.0; non-supine = 10.37). Snore was moderate in intensity. There was no significant periodic leg movement of sleep. Cardiac rhythm was normal sinus rhythm without significant arrhythmia. No abnormal behavior (parasomnia) observed during the night. Allergies and Home Medications Drug allergies reviewed: Yes (sulfa, doxycycline, lisinopril) Home medication list reviewed: Yes (no changes) Review of Systems Review of systems same as previous: Yes (no changes) Physical Exam Heart Rate: 63 O2 Saturation: 97 Height: 5 ft 6 in Weight: 192 lb Body Mass Index: 30.9 BMI Classification: Obese Impression and Plan 1. Obstructive Sleep Apnea-Hypopnea Syndrome, moderate, with lowest oxygen saturation of 83%. Obviously this is the cause of the patients symptoms of unrefreshed sleep, and excessive daytime sleepiness. Positive pressure therapy could benefit her hypertension and Lupus. Patient is very familiar with CPAP since her and daughter both use them. As mentioned above, the patient will be started on nasal autoCPAP therapy with pressure set at 4-15 cmH2O. A manual titration study will be completed if unable to find optimal treatment pressure with office adjustments. Compliance guidelines also reviewed. A copy of compliance guidelines will be given for reference at check out. Because the apnea is more severe supine, I instructed to avoid sleeping supine using pillow positioning until able to start CPAP use. * Nasal auto CPAP therapy, pressure at 4-15 cm H2O. * Attempt to lose weight. * Avoid alcohol consumption near bedtime. * Avoid supine sleep until using CPAP. * The patient is again cautioned about driving until sleepiness completely resolves. * Return one month after CPAP obtained. I will assess response to therapy and compliance at that time. Visit Type: In Office Time Spent with Patient (minutes): 23 Provider Statement: I spent 100% of the Face to Face Visit with the patient with greater than 50% spent counseling the patient and coordination of care.
== END 2020-05-17 12:51 | disposition home or self-care (01) ==
LOC: SC 12:50
PROVIDERS: ATTEND Nurse Practitioner Family
DX: G47.33 Obstructive sleep apnea (adult) (pediatric) (principal); E66.9 Obesity, unspecified; Z68.30 Body mass index [BMI] 30.0-30.9, adult
CPT/HCPCS: 99212; 99213

== ENCOUNTER 2020-08-08 10:14 | Outpatient (CLI) | payer BC ==
[2020-08-08 11:01] LABS: CALCIUM 9.3 mg/dL (8.5-10.3)
== END 2020-08-08 10:15 | disposition home or self-care (01) ==
LOC: LAB 10:14
PROVIDERS: ATTEND Nurse Practitioner Family
DX: Z01.812 Encounter for preprocedural laboratory examination (principal)
CPT/HCPCS: 36415; 80048

== ENCOUNTER 2020-09-06 09:46 | Outpatient (CLI) | payer BC ==
--- NOTE | 2020-09-06 10:58 | SLEEP CARE CONSULTATION ---
Information from patient questionnaire entered by Mildred Serrato. I have reviewed and concur with the information entered by Mildred Serrato. This document represents the service I personally performed and the decisions made by , Carmina Oliveira ARNP. History of Present Illness Service Date and Time: 09/06/2020 0946 Previous diagnosis: Moderate, Obstructive Sleep Apnea-Hypopnea Syndrome AHI: 22.2 (in 2019) Reason for follow up: first compliance Equipment type: CPAP Equipment obtained from: [employer] (getting supplies as needed) Mask style: Nasal (over the nose) Backup mask available: Yes (other mask) Last cushion change: 1 month Prior sleep studies: Yes Year and Where: 2019 - [facility] Type of Sleep Study: Polysomnography HPI additional information: DARIANA STINSON was diagnosed to have moderate, AHI 22.2, obstructive sleep apnea- hypopnea syndrome and returned today with spouse for CPAP therapy first compliance follow-up. CPAP Compliance Data - Data Reviewed with Patient Average duration of nightly device use: 6 hr 32 min Compliance rate %: 90 Current pressure setting (cmH2O): 5-15 (average 11.5 and max 13.4 cmH2O) Humidity settin Heated hose settin Average residual AHI: 7.1 Central apnea: 1.7 Obstructive apnea: 3.3 Average large leak: 4 min 50 sec Subjective Missed days of use due to: reports: other (ill fitting mask, had to wait 2 weeks for mask refitting) Patient concerns: reports: mask discomfort (still getting used to it), air blowing in eyes, mask leak noise, dry mouth, nose, throat. denies: aerophagia, condensation in mask/hose, nasal congestion, epistaxis Observed to snore while using device: No Current pressure setting perceived as: too high On therapy, patient: reports: sleeping better, awakening more refreshed, being more awake and alert during the day, more rested overall, other (She still is getting used to it and has had some mask issues that have since improved). denies: drowsiness while driving Initial [place] Sleepiness Scale score: 8 (in 2019) Current [place] Sleepiness Scale score: 5 Allergies and Home Medications Drug allergies reviewed: Yes (no changes) Home medication list reviewed: Yes (no changes) Review of Systems Review of systems same as previous: Yes (no changes) Physical Exam Heart Rate: 63 O2 Saturation: 98 Height: 5 ft 6 in Weight: 199 lb Body Mass Index: 32.1 BMI Classification: Obese Impression and Plan 1. Obstructive Sleep Apnea-Hypopnea Syndrome, moderate, with good treatment compliance and fair apnea control with mildly elevated residual AHI. On CPAP therapy, the patient has better sleep quality and is more rested overall. The patients pressure will be changed to autoCPAP 11-14 cmH20 for elevation of residual AHI. Patient advised to contact me if pressure change is uncomfortable so that it can be adjusted. Goals for apnea control discussed. She has had some mask issues but is now comfortable with current nasal mask. She has been getting more mask leaking noises and air in her eyes, especially when rolling onto her side. Mask leaks can be reduced by washing mask daily and changing mask cushions more frequently to improve mask seal and comfort. Additionally, mask leaks predominately from when patient sleeps on their side can be reduced by using a CPAP pillow. A CPAP pillow sample was shown. This and other styes can be purchased online. Patient's apnea severity and rationale for treatment to reduce apnea, improve sleep quality and reduce cardiovascular and cerebrovascular events was reviewed. I also reviewed the benefit of consistent device use of CPAP for hypertension and Lupus. * Change auto CPAP pressure to 11-14 cmH2O * Notify me if snoring with mask or feeling that the pressure is too much or too little * Attempt to lose weight * Call this office if any problems using CPAP * Return for follow up in 1-2 months, or sooner if concerns arise Counseling Topics: Spare mask, Weight loss health impact Visit Type: In Office Time Spent with Patient (minutes): 17 Provider Statement: I spent 100% of the Face to Face Visit with the patient with greater than 50% spent counseling the patient and coordination of care.
== END 2020-09-06 09:47 | disposition home or self-care (01) ==
LOC: SC 09:46
PROVIDERS: ATTEND Nurse Practitioner Family
DX: G47.33 Obstructive sleep apnea (adult) (pediatric) (principal); E66.9 Obesity, unspecified; Z68.32 Body mass index [BMI] 32.0-32.9, adult
CPT/HCPCS: 99212; 99213

== ENCOUNTER 2020-11-08 10:05 | Outpatient (CLI) | payer BC ==
--- NOTE | 2020-11-08 10:37 | SLEEP CARE CONSULTATION ---
Information from patient questionnaire entered by Mildred Serrato. I have reviewed and concur with the information entered by Mildred Serrato. This document represents the service I personally performed and the decisions made by , Carmina Oliveira ARNP. History of Present Illness Service Date and Time: 11/08/2020 1005 Previous diagnosis: Moderate, Obstructive Sleep Apnea-Hypopnea Syndrome AHI: 22.2 (in 2019) Reason for follow up: other (2 month with pressure change) Equipment type: CPAP Equipment obtained from: [employer] (getting supplies as needed) Mask style: Nasal (over the nose) Backup mask available: Yes (old mask) Last cushion change: 2-2.5 weeks Prior sleep studies: Yes Year and Where: 2019 - [facility] Type of Sleep Study: Polysomnography HPI additional information: DARIANA STINSON was diagnosed to have moderate, AHI 22.2, obstructive sleep apnea- hypopnea syndrome and returned today for CPAP therapy 2 month pressure change follow-up. CPAP Compliance Data - Data Reviewed with Patient Average duration of nightly device use: 6 hr 7 min Compliance rate %: 76.7 (60 days) Current pressure setting (cmH2O): 4-11 (median 8.1, avg 10.2, max 12.3) Humidity settin Heated hose settin Average residual AHI: 6.8 Average large leak: 2 min 17 sec Subjective Patient concerns: denies: aerophagia, mask discomfort, air blowing in eyes, mask leak noise, condensation in mask/hose, nasal congestion, dry mouth, nose, throat, epistaxis, other Observed to snore while using device: No Current pressure setting perceived as: comfortable On therapy, patient: reports: sleeping better, awakening more refreshed, being more awake and alert during the day, more rested overall. denies: drowsiness while driving Initial [place] Sleepiness Scale score: 8 (in 2020) Current [place] Sleepiness Scale score: 7 Allergies and Home Medications Home medication list reviewed: Yes (no new medications) Review of Systems Review of systems same as previous: No (L knee replacement) Physical Exam Heart Rate: 89 O2 Saturation: 99 Height: 5 ft 6 in Weight: 198 lb Body Mass Index: 31.9 BMI Classification: Obese Impression and Plan 1. Obstructive Sleep Apnea-Hypopnea Syndrome, moderate, with fair treatment compliance and fair apnea control with mild elevation of residual AHI. On CPAP therapy, the patient has better sleep quality and is more rested overall. She states after the pressure was changed last time it was just "blasting" and she could not tolerate it. She had "Ok" look at it and adjusted it to 4-11 cmH2O which has been more tolerable. Unfortunately, her residual AHI is still elevated. I will change the patients pressure to autoCPAP 8-12 cmH20 for elevation of residual AHI. Patient advised to contact me if pressure change is uncomfortable so that it can be adjusted. Goals for apnea control discussed. She states no issues with mask or machine otherwise. Patient's apnea severity and rationale for treatment to reduce apnea, improve sleep quality and reduce cardiovascular and cerebrovascular events was reviewed. I also reviewed the benefit of consistent device use of CPAP for hypertension and Lupus. * Change auto CPAP pressure to 8-12 cmH2O * Notify me if snoring with mask or feeling that the pressure is too much or too little * Attempt to lose weight * Call this office if any problems using CPAP * Return for follow up in 1-2 months, or sooner if concerns arise Counseling Topics: Spare mask, Weight loss health impact Visit Type: In Office Time Spent with Patient (minutes): 20 Provider Statement: I spent 100% of the Face to Face Visit with the patient with greater than 50% spent counseling the patient and coordination of care.
== END 2020-11-08 10:06 | disposition home or self-care (01) ==
LOC: SC 10:05
PROVIDERS: ATTEND Nurse Practitioner Family
DX: G47.33 Obstructive sleep apnea (adult) (pediatric) (principal); E66.9 Obesity, unspecified; Z68.31 Body mass index [BMI] 31.0-31.9, adult
CPT/HCPCS: 99212; 99213

== ENCOUNTER 2020-12-26 12:47 | Day surgery (SDC) | payer BC ==
[2020-12-26] MEDS ORDERED: LACTATED RINGERS 1,000 ML IV ONE ×2 (13:09→17:53)
[2020-12-26] MEDS ORDERED: NALOXONE 0.4 MG/ML VIAL IVP PRN (14:30)
[2020-12-26] MEDS ORDERED: METOCLOPRAMIDE 10 MG/2 ML VIAL IVP PRN (14:30)
[2020-12-26] MEDS ORDERED: HYDROmorphone 0.5 MG/0.5 ML SYRINGE IVP PRN (14:30)
[2020-12-26] MEDS ORDERED: ePHEDrine 50 MG/ML VIAL IVP PRN (14:30)
[2020-12-26] MEDS ORDERED: ATROPINE ABBOJECT 1 MG/10 ML SYRINGE IVP PRN (14:30)
[2020-12-26] MEDS ORDERED: MORPHINE 2 MG/ML CARPUJECT IVP PRN (14:30)
[2020-12-26] MEDS ORDERED: fentaNYL 100 MCG/2 ML VIAL IVP PRN (14:30)
[2020-12-26] MEDS ORDERED: ONDANSETRON 4 MG/2 ML VIAL IVP PRN (14:30)
--- NOTE | 2020-12-26 14:30 | ANESTHESIA ---
Pre-Anesthesia VS, & Labs - Diagnosis screening - Procedure colonoscopy Vital Signs: Temp Pulse Resp BP Pulse Ox 36.8 C 75 16 132/93 H 100 12/26/20 13:16 12/26/20 13:16 12/26/20 13:16 12/26/20 13:16 12/26/20 13:16 Height: 5 ft 6 in Weight (kg): 87.5 kg Body Mass Index: 31.1 BMI Classification: Obese - NPO >8 hours - Is Patient ?: No - Lab Results Lab results reviewed: Yes Home Medications and Allergies Home Medications: Ambulatory Orders Naproxen Sod/Diphenhydram HCl [Aleve Pm Caplet] 1 each PO DAILY PM 12/26/20 Sertraline HCl [Zoloft] 100 mg PO DAILY 12/26/20 Naproxen Sod/Diphenhydram HCl [Aleve Pm Caplet] 1 each PO DAILY PM 12/26/20 Sertraline HCl [Zoloft] 100 mg PO DAILY 12/26/20 Allergies/Adverse Reactions: Allergies Allergy/AdvReac Type Severity Reaction Status Date / Time doxycycline Allergy Mild Rash Verified 12/26/20 13:25 Sulfa (Sulfonamide Allergy Mild Rash Verified 12/26/20 13:25 Antibiotics) lisinopril AdvReac Severe Edema Verified 12/26/20 13:25 Anes History & Medical History - Anesthetic History Anesthesia Complications: reports: No previous complications Family history of Anesthesia Complications: Denies Family history of Malignant Hyperthermia: Denies - Medical History Cardiovascular: reports: Hypertension, High cholesterol Pulmonary: reports: Sleep apnea, CPAP use, Other Gastrointestinal: reports: Other Urinary: reports: Other Musculoskeletal: reports: Osteoarthritis Endocrine/Autoimmune: reports: Systemic lupus erythematosus Smoking Status: Never smoker - Surgical History General: reports: Appendectomy Eyes Ears Nose Throat (EENT): reports: Tonsil/Adenoidectomy Exam General: Alert, Oriented x3, Cooperative, No acute distress Dental: WNL Mouth Openin Fingerbreadth Neck Mobility: Normal Mallampati classification: I Respiratory: Lungs clear, Normal breath sounds, No respiratory distress, No accessory muscle use Cardiovascular: Regular rate, Normal S1, Normal S2, No murmurs Plan Anesthesia Type: General, Total IV Consent for Procedure(s) Verified and Reviewed: Yes Code Status: Attempt Resuscitation ASA classification: 2-Mild systemic disease Is this case an emergency?: No
[2020-12-26] MEDS ORDERED: LACTATED RINGERS 1,000 ML IV SCH (15:00)
[2020-12-26] MEDS ORDERED: PROPOFOL 1000 MG/100 ML 1,000 MG/100 ML BOTTLE IV ONE (17:12)
--- NOTE | 2020-12-26 17:59 | ANESTHESIA POST OP EVALUATION ---
Anesthesia Post Eval - Post Anesthesia Eval Vitals: Last Vital Signs Temp 36.9 C 12/26/20 17:54 Pulse 99 12/26/20 17:54 Resp 18 12/26/20 17:54 BP 93/63 12/26/20 17:54 Pulse Ox 100 12/26/20 17:54 CV Function Including HR & BP: Stable Pain Control: Satisfactory Nausea & Vomiting: Negative Mental Status: Baseline Respiratory Status: Airway Patent Hydration Status: Satisfactory Anesthesia Complications: None
[2020-12-26 18:12] VITALS: BP 114/72
== END 2020-12-26 12:48 | disposition home or self-care (01) ==
LOC: SDS 12:47
PROVIDERS: ATTEND Surgery
PROC: 0DBN8ZZ Excision of Sigmoid Colon, Via Natural or Artificial Opening Endoscopic (ICD-10-PCS; principal; 2020-12-26 14:00)
DX: Z12.11 Encounter for screening for malignant neoplasm of colon (principal); D12.5 Benign neoplasm of sigmoid colon; K64.8 Other hemorrhoids; G47.30 Sleep apnea, unspecified; J45.909 Unspecified asthma, uncomplicated; M32.9 Systemic lupus erythematosus, unspecified; E66.9 Obesity, unspecified; Z68.31 Body mass index [BMI] 31.0-31.9, adult; F10.11 Alcohol abuse, in remission; M19.90 Unspecified osteoarthritis, unspecified site; F41.9 Anxiety disorder, unspecified; Z79.51 Long term (current) use of inhaled steroids; Z79.1 Long term (current) use of non-steroidal anti-inflammatories (NSAID); Z79.899 Other long term (current) drug therapy; Z87.440 Personal history of urinary (tract) infections; Z90.5 Acquired absence of kidney; Z80.0 Family history of malignant neoplasm of digestive organs; Z83.79 Family history of other diseases of the digestive system; Z87.891 Personal history of nicotine dependence
CPT/HCPCS: 45385; J7120

== ENCOUNTER 2021-01-12 14:47 | Outpatient (CLI) | payer BC ==
--- NOTE | 2021-01-12 15:12 | SLEEP CARE CONSULTATION ---
Information from patient questionnaire entered by Mildred Serrato. I have reviewed and concur with the information entered by Mildred Serrato. This document represents the service I personally performed and the decisions made by , Carmina Oliveira ARNP. History of Present Illness Service Date and Time: 01/12/2021 1447 Previous diagnosis: Moderate, Obstructive Sleep Apnea-Hypopnea Syndrome AHI: 22.2 (in 2019) Reason for follow up: other (2 month with pressure change) Equipment type: CPAP Equipment obtained from: [employer] (getting supplies as needed) Mask style: Nasal (over the nose) Backup mask available: Yes (other mask) Last cushion change: 2-4 weeks Prior sleep studies: Yes Year and Where: 2019 [facility] Type of Sleep Study: Polysomnography HPI additional information: DARIANA STINSON was diagnosed to have moderate, AHI 22.2, obstructive sleep apnea- hypopnea syndrome and returned today for CPAP therapy 2 month pressure change follow-up. CPAP Compliance Data - Data Reviewed with Patient Average duration of nightly device use: 5 hr 40 min Compliance rate %: 71.7 (60 days) Current pressure setting (cmH2O): 8-12 (mean 9.2, avg 10.9 and max 12.0) Humidity settin Heated hose settin Average residual AHI: 6.0 Average large leak: 4 min 7 sec Subjective Missed days of use due to: reports: other (taking off at night) Patient concerns: reports: nasal congestion (from allergies). denies: aerophagia, mask discomfort, air blowing in eyes, mask leak noise, condensation in mask/hose, dry mouth, nose, throat, epistaxis, other Observed to snore while using device: No Current pressure setting perceived as: too high (at first, now comfortable) On therapy, patient: reports: sleeping better, awakening more refreshed, being more awake and alert during the day, more rested overall. denies: drowsiness while driving Initial [place] Sleepiness Scale score: 8 (in 2019) Current [place] Sleepiness Scale score: 4 Allergies and Home Medications Home medication list reviewed: Yes (no changes) Review of Systems Review of systems same as previous: Yes (no changes) Physical Exam Heart Rate: 60 O2 Saturation: 97 Height: 5 ft 6 in Weight: 197 lb Body Mass Index: 31.8 BMI Classification: Obese Impression and Plan 1. Obstructive Sleep Apnea-Hypopnea Syndrome, moderate, with fair treatment compliance and fair apnea control with minimal elevation of residual AHI. On CPAP therapy, the patient has better sleep quality and is more rested overall. She has felt the pressure is too much at the start of night, but she ramps the pressure down to 4 cmH2O and is able to go back to sleep before it gets too high. She does have a minimal elevation of her residual apnea and we discussed increasing her pressure to 10-12 cmH2O. She may still use the ramp feature to reduce pressure while going to sleep. She agreed to try the pressure change and will call if this is uncomfortable so I can adjust pressure back. Patient's apnea severity and rationale for treatment to reduce apnea, improve sleep quality and reduce cardiovascular and cerebrovascular events was reviewed. I also reviewed the benefit of consistent device use of CPAP for hypertension and lupus. * Change auto CPAP pressure to 10-12 cmH2O * Notify me if snoring with mask or feeling that the pressure is too much or too little * Attempt to lose weight * Call this office if any problems using CPAP * Return for follow up in 1-2 months, or sooner if concerns arise Counseling Topics: Spare mask, Weight loss health impact Visit Type: In Office Time Spent with Patient (minutes): 16 Provider Statement: I spent 100% of the Face to Face Visit with the patient with greater than 50% spent counseling the patient and coordination of care.
== END 2021-01-12 14:48 | disposition home or self-care (01) ==
LOC: SC 14:47
PROVIDERS: ATTEND Nurse Practitioner Family
DX: G47.33 Obstructive sleep apnea (adult) (pediatric) (principal); E66.9 Obesity, unspecified; Z68.31 Body mass index [BMI] 31.0-31.9, adult
CPT/HCPCS: 99212

== ENCOUNTER 2021-03-13 10:27 | Outpatient (CLI) | payer BC ==
[2021-03-13 11:13] LABS: BASOPHILS % (AUTO) 0.8 %; EOSINOPHILS # (AUTO) 0.1 10^3/uL (0.0-0.7); HCT - HEMATOCRIT 36.5 % (37.0-47.0); HGB - HEMOGLOBIN 11.9 g/dL (12.0-16.0); LYMPHOCYTES # (AUTO) 0.5 10^3/uL (1.5-3.5); LYMPHOCYTES % (AUTO) 9.6 %; MEAN CORPUSCULAR HEMOGLOBIN 31.2 pg (27.0-31.0); MEAN CORPUSCULAR HGB CONC 32.6 g/dL (32.0-36.0); MEAN CORPUSCULAR VOLUME 95.8 fL (81.0-99.0); MEAN PLATELET VOLUME 9.8 fL (7.9-10.8); MONOCYTES # (AUTO) 0.2 10^3/uL (0.0-1.0); MONOCYTES % (AUTO) 4.6 %; NEUTROPHILS # (AUTO) 4.4 10^3/uL (1.5-6.6); NEUTROPHILS % (AUTO) 83.6 %; PLT - PLATELET COUNT 177 10^3/uL (130-450); RED BLOOD COUNT 3.81 10^6/uL (4.20-5.40); RED CELL DISTRIBUTION WIDTH 14.3 % (12.0-15.0); WHITE BLOOD COUNT 5.2 x10^3/uL (4.8-10.8)
[2021-03-13 11:33] LABS: ALBUMIN 4.4 g/dL (3.2-5.5); ALBUMIN/GLOBULIN RATIO 1.7 (1.0-2.2); ALKALINE PHOSPHATASE 46 IU/L (42-121); ALT ALANINE AMINOTRANSFERASE 11 IU/L (10-60); AST ASPARTATE AMINOTRANSFERASE 15 IU/L (10-42); BILIRUBIN,TOTAL 0.8 mg/dL (0.2-1.0); BUN - BLOOD UREA NITROGEN 23 mg/dL (6-20); CALCIUM 9.4 mg/dL (8.5-10.3); CARBON DIOXIDE - CO2 27 mmol/L (21-32); CHLORIDE 101 mmol/L (101-111); CHOL/HDL RATIO 3.7 (<4.4); CHOLESTEROL 231 mg/dL; CREATININE 0.9 mg/dL (0.4-1.0); GFR - MDRD 63 (>89); GLUCOSE 98 mg/dL (70-100); HDL CHOLESTEROL 63 mg/dL; LDL CHOLESTEROL,CALCULATED 156 mg/dL; LDL/HDL RATIO 2.5 (<4.4); POTASSIUM 4.4 mmol/L (3.5-5.0); SODIUM 136 mmol/L (135-145); TRIGLYCERIDES 61 mg/dL; VLDL CHOLESTEROL 12 mg/dL
[2021-03-16 11:26] LABS: COMPLEMENT COMPONENT C3C 108 mg/dL (83-193)
[2021-03-16 14:01] LABS: DNA (DS) ANTIBODY 6 IU/mL
== END 2021-03-13 10:28 | disposition home or self-care (01) ==
LOC: LAB 10:27
PROVIDERS: ATTEND Internal Medicine
DX: I10 Essential (primary) hypertension (principal); L93.0 Discoid lupus erythematosus
CPT/HCPCS: 36415; 80053; 80061; 83721; 85025; 85651; 86160; 86225

== ENCOUNTER 2021-03-14 10:46 | Outpatient (CLI) | payer BC ==
--- NOTE | 2021-03-14 11:13 | SLEEP CARE CONSULTATION ---
Information from patient questionnaire entered by Mildred Serrato. I have reviewed and concur with the information entered by Mildred Serrato. This document represents the service I personally performed and the decisions made by , Carmina Oliveira ARNP. History of Present Illness Service Date and Time: 03/14/2021 1046 Previous diagnosis: Moderate, Obstructive Sleep Apnea-Hypopnea Syndrome AHI: 22.2 (in 2019) Reason for follow up: other (2 month with pressure change) Equipment type: CPAP Equipment obtained from: [employer] (getting supplies as needed) Mask style: Nasal (over the nose) Backup mask available: Yes (old mask) Last cushion change: 6 weeks Prior sleep studies: Yes Year and Where: 2019 - [facility] Type of Sleep Study: Polysomnography HPI additional information: DARIANA STINSON was diagnosed to have moderate, AHI 22.2, obstructive sleep apnea- hypopnea syndrome and returned today for CPAP therapy 2 month pressure change follow-up. CPAP Compliance Data - Data Reviewed with Patient Average duration of nightly device use: 5 hr 55 sec Compliance rate %: 70 (60 days) Current pressure setting (cmH2O): 10-12 Humidity settin Heated hose settin Average residual AHI: 4.1 Central apnea: 1.3 Obstructive apnea: 2.1 Average large leak: 49 sec Subjective Patient concerns: denies: aerophagia, mask discomfort, air blowing in eyes, mask leak noise, condensation in mask/hose, nasal congestion, dry mouth, nose, throat, epistaxis, other Observed to snore while using device: No Current pressure setting perceived as: comfortable On therapy, patient: reports: sleeping better, awakening more refreshed, being more awake and alert during the day, more rested overall. denies: drowsiness while driving Initial [place] Sleepiness Scale score: 8 (in 2019) Current [place] Sleepiness Scale score: 2 Allergies and Home Medications Home medication list reviewed: Yes (no changes) Review of Systems Review of systems same as previous: Yes (no changes) Physical Exam Heart Rate: 78 O2 Saturation: 97 Height: 5 ft 6 in Weight: 193 lb Body Mass Index: 31.1 BMI Classification: Obese Impression and Plan 1. Obstructive Sleep Apnea-Hypopnea Syndrome, moderate, with good treatment compliance and good apnea control. On CPAP therapy, the patient has better sleep quality and is more rested overall. Patient is pleased with how well she has acclimatized to her new device and does note that she feels more rested overall. Patient is aware of the [employer] recall. She states that she has not yet registered with them. She has not noticed any black particles in her pulses, mask or water chamber. Patient feels she is safe to continue using it until the decide what they are going to do about this recall. I advised her to get an inline particle filter for her CPAP machine to reduce chances of inhaling any particles if it should degrade. Patient voiced understanding and agreement with this plan of care. I will follow-up with her in about 6 months. Patient's apnea severity and rationale for treatment to reduce apnea, improve sleep quality and reduce cardiovascular and cerebrovascular events was reviewed. I also reviewed the benefit of consistent device use of CPAP for hypertension and lupus. Patient was encouraged to try to lose weight. * Continue auto CPAP pressure at 10-12 cmH2O * [place] with [employer] for recall on device * Notify me if snoring with mask or feeling that the pressure is too much or too little * Attempt to lose weight * Call this office if any problems using CPAP * Return for follow up in 6 months, or sooner if concerns arise Counseling Topics: Spare mask, Weight loss health impact Visit Type: In Office Time Spent with Patient (minutes): 20 Provider Statement: I spent 100% of the Face to Face Visit with the patient with greater than 50% spent counseling the patient and coordination of care.
== END 2021-03-14 10:47 | disposition home or self-care (01) ==
LOC: SC 10:46
PROVIDERS: ATTEND Nurse Practitioner Family
DX: G47.33 Obstructive sleep apnea (adult) (pediatric) (principal); E66.9 Obesity, unspecified; Z68.31 Body mass index [BMI] 31.0-31.9, adult
CPT/HCPCS: 99212; 99213

== ENCOUNTER 2021-03-22 16:38 | Outpatient (CLI) | payer BC | END 2021-03-22 16:39 | disposition home or self-care (01) | LOC: COV 16:38 | PROVIDERS: ATTEND Family Medicine | DX: R07.0 Pain in throat (principal); R09.81 Nasal congestion; Z20.822 Contact with and (suspected) exposure to COVID-19 ==

== ENCOUNTER 2021-03-24 07:59 | Emergency (ER) | payer BC ==
[2021-03-24] MEDS ORDERED: cefTRIAXone 1 GM in SODIUM CHLORIDE 0.9% MINIBAG 100 ML IV STA (08:19)
[2021-03-24] MEDS ORDERED: SODIUM CHLORIDE 0.9% 1,000 ML IV STA (08:19)
[2021-03-24] MEDS ORDERED: DEXAMETHASONE 10 MG/ML VIAL IVP STA (08:19)
--- NOTE | 2021-03-24 08:22 | ED Physician Documentation ---
History of Present Illness - Stated complaint Stated Complaint: UNABLE TO SWALLOW - Chief complaint Chief Complaint: Heent - History obtained from History obtained from: Patient - Additonal information Additional information: 4 days of sore throat. Seen at a walk-in clinic 2 days ago and had a positive strep test and started on amoxicillin. Despite that has oral sores and worsening trouble swallowing anything due to the pain. She is running fevers. No cough. Review of Systems Constitutional: reports: Fever, Chills, Fatigue Nose: denies: Rhinorrhea / runny nose Throat: reports: Sore throat Respiratory: denies: Cough PD PAST MEDICAL HISTORY - Past Medical History Cardiovascular: Hypertension, High cholesterol Respiratory: Sleep apnea, CPAP use, Other Endocrine/Autoimmune: Systemic lupus erythematosus GI: Other : Other HEENT: Chronic vision loss Psych: Anxiety Musculoskeletal: Osteoarthritis - Past Surgical History Past Surgical History: Yes General: Appendectomy HEENT: Tonsil/Adenoidectomy - Present Medications Home Medications: Ambulatory Orders Medication Instructions Recorded Confirmed Naproxen Sod/Diphenhydram HCl 1 each PO DAILY PM 12/26/20 12/26/20 [Aleve Pm Caplet] Sertraline HCl [Zoloft] 100 mg PO DAILY 12/26/20 12/26/20 Ketorolac [Toradol] 10 mg PO Q6H PRN #14 tablet 03/24/21 Lidocaine Viscous 2% [Xylocaine 5 ml MM Q4H #100 ml 03/24/21 Viscous 2%] predniSONE [Deltasone] 60 mg PO DAILY 5 Days #15 tablet 03/24/21 - Allergies Allergies/Adverse Reactions: Allergies Allergy/AdvReac Type Severity Reaction Status Date / Time doxycycline Allergy Mild Rash Verified 03/24/21 08:12 Sulfa (Sulfonamide Allergy Mild Rash Verified 03/24/21 08:12 Antibiotics) lisinopril AdvReac Severe Edema Verified 03/24/21 08:12 - Social History Does the pt smoke?: No Smoking Status: Never smoker Does the pt drink ETOH?: Yes - POLST Patient has POLST: No PD ED PE NORMAL - Vitals Vital signs reviewed: Yes - General General: Alert and oriented X 3, No acute distress - HEENT HEENT: Other (Surgically absent tonsil tonsils, normal voice, no trismus, oral ulcers on the buccal mucosa and lips.) - Neck Neck: Supple, no meningeal sign, No bony TTP, No adenopathy - Neuro Neuro: Alert and oriented X 3, Normal speech Results - Vitals Vitals: Vital Signs - 24 hr 03/24/ 08:08 Temperature 36.9 C Heart Rate 97 Respiratory 18 Rate Blood Pressure 141/75 H O2 Saturation 99 Oxygen O2 Source Room air PD MEDICAL DECISION MAKING - ED course ED course: Note for MIPS review, had positive strep test 2 days ago as an outpatient. 60-year-old woman with known strep pharyngitis presents without improvement over 2 days with antibiotics. She felt much better after some Toradol, lidocaine and IV fluids. Also had Decadron here. Departure - Departure Disposition: 01 Home, Self Care Clinical Impression: Pharyngitis Qualifiers: Pharyngitis/tonsillitis etiology: streptococcus Qualified Code(s): J02.0 - Streptococcal pharyngitis Condition: Good Record reviewed to determine appropriate education?: Yes Instructions: ED Strep Pharyngitis Conf Prescriptions: predniSONE [Deltasone] 60 mg PO DAILY 5 Days #15 tablet Ketorolac [Toradol] 10 mg PO Q6H PRN #14 tablet PRN Reason: Pain Lidocaine Viscous 2% [Xylocaine Viscous 2%] 5 ml MM Q4H #100 ml Comments: As discussed, no need for more antibiotics or steroids today as you got long- acting doses in the IV. Restart the antibiotics and start the steroid (prednisone) tomorrow. Return for new or worsening symptoms.
[2021-03-24] MEDS ORDERED: cefTRIAXone 1 GM VIAL ONE (08:25)
[2021-03-24] MEDS ORDERED: LIDOCAINE VISCOUS 2% 15 ML UDC MM STA (10:04)
[2021-03-24] MEDS ORDERED: KETOROLAC 15 MG/ML VIAL IVP STA (10:04)
[2021-03-24 11:26] VITALS: BP 130/70
== END 2021-03-24 11:25 | disposition home or self-care (01) ==
LOC: ED 07:59
DX: J02.0 Streptococcal pharyngitis (principal); I10 Essential (primary) hypertension
CPT/HCPCS: 96365; 96375; 99283

== ENCOUNTER 2022-05-23 15:09 | Outpatient (CLI) | payer BC ==
--- NOTE | 2022-05-23 20:36 | Ultrasound Report ---
PROCEDURE: Pelvic w/Transvaginal INDICATIONS: PELVIC CONGESTION SYNDROME TECHNIQUE: Real-time scanning was performed of the pelvic organs, with image documentation. Additional endovagi nal scanning was necessary due to incomplete visualization of the adnexal and endometrial structures by transabdominal scanning. COMPARISON: None. FINDINGS: Uterus: Uterus is anteverted and normal in size at 5.4 x 2.5 x 3.5 cm. The myometrium is homogeneou s. The endometrium measures 3 mm in combined thickness. Small amount of fluid is seen in the endome trial canal. Nabothian cysts are seen in the cervix. Ovaries: The right ovary is not visualized. The left ovary measures 1.6 x 1.2 x 3.1 cm, with a calcu lated ovarian volume of 3.1 cc. The left ovary is likely visualized on transabdominal images and is n ot well evaluated. Other: No pathologic free abdominal or pelvic fluid. Mild varicose veins are seen in the pelvis with reflux during Valsalva maneuver. IMPRESSION: Varicose veins are seen in the pelvis with reflux at the lower uterine segment with Valsalva, which c ould indicate pelvic congestion syndrome. Otherwise, normal pelvic ultrasound for age. Reviewed by: Hector Maldonado MD on 05/23/2022 8:35 PM PDT Approved by: Hector Maldonado MD on 05/23/2022 8:35 PM PDT Station ID: [id number]
== END 2022-05-23 15:10 | disposition home or self-care (01) ==
LOC: DI 15:09
PROVIDERS: ATTEND Registered Nurse
DX: N94.89 Other specified conditions associated with female genital organs and menstrual cycle (principal)

== ENCOUNTER 2022-06-10 08:55 | Outpatient (CLI) | payer BC ==
[2022-06-10 09:06] LABS: BASOPHILS % (AUTO) 0.7 %; EOSINOPHILS # (AUTO) 0.1 10^3/uL (0.0-0.7); EOSINOPHILS % (AUTO) 2.2 %; HCT - HEMATOCRIT 36.3 % (37.0-47.0); HGB - HEMOGLOBIN 12.1 g/dL (12.0-16.0); LYMPHOCYTES # (AUTO) 0.7 10^3/uL (1.5-3.5); LYMPHOCYTES % (AUTO) 15.3 %; MEAN CORPUSCULAR HEMOGLOBIN 31.5 pg (27.0-31.0); MEAN CORPUSCULAR HGB CONC 33.3 g/dL (32.0-36.0); MEAN CORPUSCULAR VOLUME 94.5 fL (81.0-99.0); MEAN PLATELET VOLUME 9.7 fL (7.9-10.8); MONOCYTES # (AUTO) 0.4 10^3/uL (0.0-1.0); MONOCYTES % (AUTO) 8.3 %; NEUTROPHILS # (AUTO) 3.4 10^3/uL (1.5-6.6); NEUTROPHILS % (AUTO) 73.3 %; PLT - PLATELET COUNT 169 10^3/uL (130-450); RED BLOOD COUNT 3.84 10^6/uL (4.20-5.40); RED CELL DISTRIBUTION WIDTH 13.9 % (12.0-15.0); WHITE BLOOD COUNT 4.6 x10^3/uL (4.8-10.8)
[2022-06-10 09:30] LABS: ALBUMIN 4.3 g/dL (3.2-5.5); ALBUMIN/GLOBULIN RATIO 1.7 (1.0-2.2); ALKALINE PHOSPHATASE 37 IU/L (42-121); ALT ALANINE AMINOTRANSFERASE 12 IU/L (10-60); AST ASPARTATE AMINOTRANSFERASE 16 IU/L (10-42); BILIRUBIN,TOTAL 1.1 mg/dL (0.2-1.0); BUN - BLOOD UREA NITROGEN 17 mg/dL (6-20); CALCIUM 9.6 mg/dL (8.5-10.3); CARBON DIOXIDE - CO2 27 mmol/L (21-32); CHLORIDE 101 mmol/L (101-111); CHOL/HDL RATIO 3.8 (<4.4); CHOLESTEROL 250 mg/dL; GFR - MDRD 56 (>89); GLUCOSE 98 mg/dL (70-100); HDL CHOLESTEROL 66 mg/dL; LDL CHOLESTEROL,CALCULATED 170 mg/dL; LDL/HDL RATIO 2.6 (<4.4); POTASSIUM 4.8 mmol/L (3.5-5.0); SODIUM 135 mmol/L (135-145); TOTAL PROTEIN 6.8 g/dL (6.7-8.2); TRIGLYCERIDES 71 mg/dL; VLDL CHOLESTEROL 14 mg/dL
[2022-06-10 09:37] LABS: THYROID STIMULATING HORMONE 1.35 uIU/mL (0.34-5.60)
== END 2022-06-10 08:56 | disposition home or self-care (01) ==
LOC: LAB 08:55
PROVIDERS: ATTEND Registered Nurse
DX: Z79.899 Other long term (current) drug therapy (principal); Z13.220 Encounter for screening for lipoid disorders; Z13.29 Encounter for screening for other suspected endocrine disorder
CPT/HCPCS: 36415; 80053; 80061; 83721; 84443; 85025

== ENCOUNTER 2023-07-11 11:39 | Outpatient (CLI) | payer BC ==
--- NOTE | 2023-07-11 12:35 | SLEEP CARE CONSULTATION ---
Information from patient questionnaire entered by Claribel Kinsey. I have reviewed and concur with the information entered by Claribel Kinsey. This document represents the service I personally performed and the decisions made by me, Carmina Oliveira ARNP. History of Present Illness Service Date and Time: 07/11/2023 1139 Previous diagnosis: Moderate, Obstructive Sleep Apnea-Hypopnea Syndrome AHI: 22.2 (in 2019) Reason for follow up: annual (LAST SEEN 03/2021) Equipment type: CPAP (Dreamstation, recertified; NEED SD CARD FOR DOWNLOAD) Equipment obtained from: [employer] (getting supplies as needed) Mask style: Nasal (over the nose) Backup mask available: Yes Last cushion change: 1.5 weeks Prior sleep studies: Yes Year and Where: 2019 - [facility] Type of Sleep Study: Polysomnography HPI additional information: DARIANA STINSON was diagnosed to have moderate, AHI 22.2, obstructive sleep apnea- hypopnea syndrome and returned today for CPAP therapy annual follow-up. Sleep Study - Results Type of Sleep Study: Polysomnography Prior sleep studies: Yes Year and Where: 2019 - [facility] CPAP Compliance Data - Data Reviewed with Patient Average duration of nightly device use: 3 hours 46 minutes Compliance rate %: 40 ( days used) Current pressure setting (cmH2O): 11-15.5 Average residual AHI: 2.9 Central apnea: 0.4 Obstructive apnea: 1.2 Hypopnea: 1.3 Average large leak: 0 secs Compliance data discussion: Data is from machine she is using. Subjective Patient concerns: reports: mask discomfort, air blowing in eyes (if on her side). denies: aerophagia, mask leak noise, condensation in mask/hose, nasal congestion, dry mouth, nose, throat, epistaxis Observed to snore while using device: No Current pressure setting perceived as: too high On therapy, patient: reports: other (does not notice a difference in he sleep or restfulness). denies: drowsiness while driving Initial [place] Sleepiness Scale score: 8 (in 2019) Current [place] Sleepiness Scale score: 2 Allergies and Home Medications Known drug allergies: Yes (as listed) Drug allergies reviewed: Yes Home medication list reviewed: Yes (no changes) Allergy and home medication list: Allergies doxycycline Allergy (Mild, Verified 07/10/23 13:59) Rash Sulfa (Sulfonamide Antibiotics) Allergy (Mild, Verified 07/10/23 13:59) Rash lisinopril Adverse Reaction (Severe, Verified 07/10/23 13:59) Edema angio edema Review of Systems Review of systems same as previous: Yes (no changes) Physical Exam Vital signs obtained and entered by: Carmina Rios NP Blood Pressure: 100/69 Cuff size: wrist (right) Heart Rate: 70 O2 Saturation: 99 Height: 5 ft 6 in Weight: 174 lb 9.6 oz Weight change since last visit: 19 lbs loss Body Mass Index: 28.1 BMI Classification: Overweight Impression and Plan 1. Obstructive Sleep Apnea-Hypopnea Syndrome, moderate, with poor treatment compliance and good apnea control. On CPAP therapy, the patient has better sleep quality and is more rested overall. Patient says that she and her both got replacements from [employer] for the recall. Her machine was making a loud whining noise while was working which made it difficult for her to use it. So, she and her switched machines since the noise did not bother him. She is using his CPAP set at 11-15.5 cm H2O when she should be using a CPAP set at 10-12 cm H2O. I advised her to call [employer] and have the names switched on the machines and to bring the machines in so that I can make sure that the pressures are set up properly for each person. I also advised her that she can contact [employer], phone number supplied, about the loud hissing noise on the one device to see if they could evaluate and repair the CPAP. I will also want to follow-up in 1 to 2 months to make sure the data that we have is clear and to re-check compliance. She voiced understanding and agreement with plan of care. Patient's apnea severity and rationale for treatment to reduce apnea, improve sleep quality and reduce cardiovascular and cerebrovascular events was reviewed. I also reviewed the benefit of consistent device use of CPAP for hypertension. 2. Overweight, unspecified. Currently patients BMI is 28.1. She says she has lost 30 pounds over the last couple years. Obesity increases the risk of apnea, CPAP pressure requirements and overall health risks especially cardiovascular and diabetes. Thus patient is advised to continue to try to lose weight. * Continue auto CPAP pressure at 10-12 cmH2O * Bring in machine so we can verify correct settings on machine * Notify me if snoring with mask or feeling that the pressure is too much or too little * Attempt to lose weight * Call this office if any problems using CPAP * Return for follow up in 1-2 months, or sooner if concerns arise Counseling Topics: Weight loss health impact Follow up with Sleep Care in: 1-2 months Visit Type: In Office Time Spent with Patient (minutes): 29 Provider Statement: I spent 100% of the Face to Face Visit with the patient with greater than 50% spent counseling the patient and coordination of care.
[2023-07-11 12:45] VITALS: BP 100/69; O2SAT 99
== END 2023-07-11 11:40 | disposition home or self-care (01) ==
LOC: SC 11:39
PROVIDERS: ATTEND Nurse Practitioner Family
DX: G47.33 Obstructive sleep apnea (adult) (pediatric) (principal); E66.3 Overweight; Z68.28 Body mass index [BMI] 28.0-28.9, adult
CPT/HCPCS: 99212; 99213

== ENCOUNTER 2023-08-19 16:01 | Outpatient (CLI) | payer BC ==
--- NOTE | 2023-08-19 16:53 | Sleep Patient Instructions ---
Sleep Center Visit Summary - Patient Visit Information Reason for Visit: 1 month followup - Patient Instructions Additional Instructions: You were here for follow up of CPAP therapy. You will be continued on CPAP therapy with pressure at 10-12 cmH2O. You should follow up with sleep care in 12 months. You may contact us sooner for any questions or concerns. - Clinic Information Contact: [facility] [address] [place] [id number] [email or web address] T: [phone]
--- NOTE | 2023-08-19 16:59 | SLEEP CARE CONSULTATION ---
Information from patient questionnaire entered by Ernst Kinsey. I have reviewed and concur with the information entered by Ernst Kinsey. This document represents the service I personally performed and the decisions made by me, Carmina Oliveira ARNP. History of Present Illness Service Date and Time: 08/19/2023 1601 Previous diagnosis: Moderate, Obstructive Sleep Apnea-Hypopnea Syndrome AHI: 22.2 (in 2019) Reason for follow up: one month (F/U) Accompanied by: Spouse Equipment type: CPAP ([employer] Dreamstation 2; NEED MACHINE) Equipment obtained from: [employer] (getting supplies as needed) Mask style: Nasal (over the nose) Mask brand: [employer]ironics ([place]) Backup mask available: No Last cushion change: 3 weeks Prior sleep studies: Yes Year and Where: 2019 - [facility] Type of Sleep Study: Polysomnography HPI additional information: DARIANA STINSON was diagnosed to have moderate, AHI 22.2, obstructive sleep apnea- hypopnea syndrome and returned today with spouse for CPAP therapy one month follow-up. Sleep Study - Results Type of Sleep Study: Polysomnography Prior sleep studies: Yes Year and Where: 2019 - [facility] CPAP Compliance Data - Data Reviewed with Patient Average duration of nightly device use: 6 hours 29 minutes Compliance rate %: 71.8 (28/39 days used) Current pressure setting (cmH2O): 11-15.5 Average residual AHI: 6.7 Central apnea: 1.7 Obstructive apnea: 3.6 Hypopnea: 1.4 Average large leak: 54 secs Subjective Missed days of use due to: reports: travel Patient concerns: denies: aerophagia, mask discomfort, air blowing in eyes, mask leak noise, condensation in mask/hose, nasal congestion, dry mouth, nose, throat, epistaxis Observed to snore while using device: Yes (occasionally) Current pressure setting perceived as: comfortable On therapy, patient: reports: sleeping better, awakening more refreshed, being more awake and alert during the day, more rested overall. denies: drowsiness while driving Initial [place] Sleepiness Scale score: 8 (in 2019) Current [place] Sleepiness Scale score: 3 (08/19/23) Allergies and Home Medications Known drug allergies: Yes (as listed) Drug allergies reviewed: Yes Home medication list reviewed: Yes (baby aspirin) Allergy and home medication list: Allergies doxycycline Allergy (Mild, Verified 08/18/23 10:17) Rash Sulfa (Sulfonamide Antibiotics) Allergy (Mild, Verified 08/18/23 10:17) Rash lisinopril Adverse Reaction (Severe, Verified 08/18/23 10:17) Edema angio edema Review of Systems Review of systems same as previous: No (CARDIAC (possible mild infarct)) Physical Exam Vital signs obtained and entered by: ERNST Billings MA Blood Pressure: 109/73 (RIGHT ARM) Cuff size: regular Heart Rate: 56 O2 Saturation: 96 Height: 5 ft 6 in Weight: 173 lb 6.4 oz Body Mass Index: 28.0 BMI Classification: Overweight Impression and Plan 1. Obstructive Sleep Apnea-Hypopnea Syndrome, moderate, with good treatment compliance and fair apnea control with elevated residual AHI. On CPAP therapy, the patient has better sleep quality and is more rested overall. Patient's states she occasionally snores. Her residual AHI is mildly elevated. The patients pressure will be changed to autoCPAP 12-15 cmH20 for elevation of residual AHI. Patient advised to contact me if pressure change is uncomfortable so that it can be adjusted. Goals for apnea control discussed. Patient's apnea severity and rationale for treatment to reduce apnea, improve sleep quality and reduce cardiovascular and cerebrovascular events was reviewed. I also reviewed the benefit of consistent device use of CPAP for hypertension. 2. Overweight, unspecified. Currently patients BMI is 28. Obesity increases the risk of apnea, CPAP pressure requirements and overall health risks especially cardiovascular and diabetes. Thus patient is advised to continue to try to lose weight. * Change auto CPAP pressure at 12-15 cmH2O * Update supply prescription * Notify me if snoring with mask or feeling that the pressure is too much or too little * Attempt to lose weight * Call this office if any problems using CPAP * Return for follow up in 1 year, or sooner if concerns arise Counseling Topics: Spare mask, Weight loss health impact Prescriptions: Device supplies Follow up with Sleep Care in: 1 year Visit Type: In Office Time Spent with Patient (minutes): 23 Provider Statement: I spent 100% of the Face to Face Visit with the patient with greater than 50% spent counseling the patient and coordination of care.
[2023-08-19 17:13] VITALS: BP 109/73; O2SAT 96
== END 2023-08-19 16:02 | disposition home or self-care (01) ==
LOC: SC 16:01
PROVIDERS: ATTEND Nurse Practitioner Family
DX: G47.33 Obstructive sleep apnea (adult) (pediatric) (principal); E66.3 Overweight; Z68.28 Body mass index [BMI] 28.0-28.9, adult
CPT/HCPCS: 99212; 99213

== ENCOUNTER 2023-09-09 10:14 | Outpatient (CLI) | payer BC ==
[2023-09-09 10:27] LABS: BASOPHILS % (AUTO) 0.5 %; EOSINOPHILS # (AUTO) 0.1 10^3/uL (0.0-0.7); EOSINOPHILS % (AUTO) 3.3 %; HCT - HEMATOCRIT 37.7 % (37.0-47.0); HGB - HEMOGLOBIN 12.3 g/dL (12.0-16.0); LYMPHOCYTES # (AUTO) 1.5 10^3/uL (1.5-3.5); LYMPHOCYTES % (AUTO) 34.4 %; MEAN CORPUSCULAR HGB CONC 32.6 g/dL (32.0-36.0); MEAN PLATELET VOLUME 9.3 fL (7.9-10.8); MONOCYTES # (AUTO) 0.3 10^3/uL (0.0-1.0); MONOCYTES % (AUTO) 7.8 %; NEUTROPHILS # (AUTO) 2.3 10^3/uL (1.5-6.6); PLT - PLATELET COUNT 181 10^3/uL (130-450); RED BLOOD COUNT 3.97 10^6/uL (4.20-5.40); RED CELL DISTRIBUTION WIDTH 13.8 % (12.0-15.0); WHITE BLOOD COUNT 4.2 x10^3/uL (4.8-10.8)
[2023-09-09 10:47] LABS: ALBUMIN 4.5 g/dL (3.2-5.5); ALKALINE PHOSPHATASE 38 IU/L (42-121); ALT ALANINE AMINOTRANSFERASE 11 IU/L (10-60); AST ASPARTATE AMINOTRANSFERASE 18 IU/L (10-42); BILIRUBIN,TOTAL 0.6 mg/dL (0.2-1.0); BUN - BLOOD UREA NITROGEN 19 mg/dL (6-20); CALCIUM 9.8 mg/dL (8.5-10.3); CARBON DIOXIDE - CO2 28 mmol/L (21-32); CHLORIDE 102 mmol/L (101-111); CHOL/HDL RATIO 3.2 (<4.4); CHOLESTEROL 263 mg/dL; GFR - MDRD 56 (>89); GLUCOSE 89 mg/dL (74-104); HDL CHOLESTEROL 82 mg/dL; LDL CHOLESTEROL,CALCULATED 168 mg/dL; POTASSIUM 4.7 mmol/L (3.5-4.5); SODIUM 135 mmol/L (135-145); TOTAL PROTEIN 6.8 g/dL (6.4-8.9); TRIGLYCERIDES 64 mg/dL (48-352); VLDL CHOLESTEROL 13 mg/dL
== END 2023-09-09 10:15 | disposition home or self-care (01) ==
LOC: LAB 10:14
PROVIDERS: ATTEND Registered Nurse
DX: I10 Essential (primary) hypertension (principal); Z13.220 Encounter for screening for lipoid disorders
CPT/HCPCS: 36415; 80053; 80061; 83721; 85025